=== PATIENT | female | born 1980 | race Caucasian/White ===

== ENCOUNTER 2016-06-26 15:14 | Inpatient (IN) | payer OTHER ==
[~2016-06-26] VITALS: Ht 165.1 cm; Wt 109.8 kg
[2016-06-26 15:52] LABS: EOSINOPHIL (%) 3.9 % (0-5); EOSINOPHIL COUNT 0.3 K/uL (0-0.3); HEMATOCRIT 35.1 % (36.0-46.0); IMMATURE GRANULOCYTE (%) 0.6 % (0.0-0.7); IMMATURE GRANULOCYTE COUNT 0.1 K/uL; INSTRUMENT ABS NEUTROPHIL CT 5.5 K/uL; LYMPHOCYTE COUNT 1.7 K/uL (1.0-2.8); MCH 31.5 PG (29.0-34.0); MCHC 33.3 G/DL (30.0-36.0); MCV 94.4 FL (83-99); MEAN PLAT.VOLUME 9.2 uM^3 (9.5-12.4); MONOCYTE (%) 6.9 % (3-12); MONOCYTE COUNT 0.6 K/uL (0-0.8); NEUTROPHIL (%) 67.6 % (45-76); NEUTROPHIL COUNT 5.5 K/uL (1.8-6.4); PLATELET COUNT 279 K/uL (156-360); RBC DIS.WIDTH-SD 44.9 % (39-53); RED BLOOD COUNT 3.72 M/uL (3.80-5.20); WHITE BLOOD COUNT 8.2 K/uL (4.1-10.2)
[2016-06-26 16:05] LABS: CHLORIDE 108 mEq/L (99-109); POTASSIUM 3.4 mEq/L (3.7-5.4); SODIUM 141 mEq/L (136-147)
[2016-06-26 16:08] LABS: GLUCOSE 166 mg/dL (70-99)
[2016-06-26 16:09] LABS: ANION GAP 13 MEQ/L (2-14); TOTAL BILIRUBIN 0.3 mg/dL (0.0-1.0)
[2016-06-26 16:10] LABS: SERUM ETHYL ALCOHOL < 10 mg/dL
[2016-06-26 16:12] LABS: ALKALINE PHOSPHATASE 55 IU/L (3-129)
[2016-06-26 16:13] LABS: UREA NITROGEN (BUN) 15 mg/dL (9-23)
[2016-06-26 16:15] LABS: SALICYLATE < 5.0 MG/DL (15-30)
[2016-06-26 16:22] LABS: GFR ESTIMATE (CALCULATED) > 59 mL/min/; QUANTITATIVE HCG < 4.0 MIU/ML
[2016-06-26 17:11] LABS: BASE EXCESS -1.5 mEq/L (-3 to +3); BICARBONATE 23.7 mEq/L (22-26); CARBOXY HGB 1.4 % (0-5); METHEMOGLOBIN 0.6 % (0-1.5); PCO2 41 mm Hg (35-45); PO2 107 mm Hg (80-100); pH 7.37 (7.35-7.45)
[2016-06-26 17:12] LABS: COMMENTS - BLOOD GASES A+C+; DEVICE VENT; FI02 40 %; MECHANICAL RATE 14 resp/min; MODE A/C; PEEP 5 CM/H20; SITE RR; TIDAL VOLUME 500 ML; TOTAL RESP RATE 14 resp/min
[2016-06-26 19:24] LABS: AMPHETAMINE NEGATIVE (500 ng/mL); BARBITURATES NEGATIVE (200 ng/mL); BENZODIAZEPINES NEGATIVE (150 ng/mL); COCAINE NEGATIVE (150 ng/mL); INTERNAL CONTROLS VALID? YES; METHADONE NEGATIVE (200 ng/mL); METHAMPHETAMINE NEGATIVE (500 ng/mL); OPIATES (MORPHINE) NEGATIVE (100 ng/mL); OXYCODONE NEGATIVE (100 ng/mL); PHENCYCLIDINE NEGATIVE (25 ng/mL); PROPOXYPHENE NEGATIVE (300 ng/mL); THC CANNABINOIDS NEGATIVE (50 ng/mL); TRICYCLIC ANTIDEPRESSANTS PRESUMPTIVE POSITIVE (300 ng/mL)
[2016-06-26 19:45] VITALS: BP 114/90
[2016-06-26 20:00] VITALS: BP 108/73
[2016-06-26 21:00] VITALS: BP 102/66
[2016-06-26 21:08] LABS: METH RESISTANT S AUREUS PCR NEGATIVE (NEGATIVE)
[2016-06-26 21:09] LABS: PROBE CHECK PASS; SPECIMEN PROCESSING CONTROL PASS
[2016-06-26 22:00] VITALS: BP 102/67
[2016-06-26 23:00] VITALS: BP 106/72
[2016-06-27] VITALS (22 sets, daily range): BP systolic 93–120; BP diastolic 60–80
[2016-06-27 08:46] LABS: MCH 31.1 PG (29.0-34.0); MCHC 32.4 G/DL (30.0-36.0); MEAN PLAT.VOLUME 9.1 uM^3 (9.5-12.4); PLATELET COUNT 267 K/uL (156-360); RBC DIS.WIDTH-CV 13.4 % (11.8-14.6); RBC DIS.WIDTH-SD 47.8 % (39-53); RED BLOOD COUNT 3.54 M/uL (3.80-5.20)
[2016-06-27 08:47] LABS: ANION GAP 7 MEQ/L (2-14); CHLORIDE 110 MEQ/L (99-109); GFR ESTIMATE (CALCULATED) > 59 mL/min/; POTASSIUM 3.9 MEQ/L (3.7-5.4); SAMPLE HEMOLYSIS CHECK 0; SAMPLE ICTERIC CHECK 0; SAMPLE LIPEMIA CHECK 0; SODIUM 144 MEQ/L (136-147); UREA NITROGEN (BUN) 12 mg/dL (9-23); WHITE BLOOD COUNT 10.7 K/uL (4.1-10.2)
[2016-06-27 08:52] LABS: GLUCOSE 85 mg/dL (70-99)
[2016-06-27 17:36] LABS: BASE EXCESS 3.5 mEq/L (-3 to +3); BICARBONATE 27.8 mEq/L (22-26); CARBOXY HGB 1.6 % (0-5); COMMENTS - BLOOD GASES A+C+; DEVICE NC; METHEMOGLOBIN 1.5 % (0-1.5); O2 FLOW 2 L/MIN; PCO2 40 mm Hg (35-45); PO2 83 mm Hg (80-100); SITE RR; TOTAL RESP RATE 16 resp/min; pH 7.45 (7.35-7.45)
[2016-06-27] MEDS ORDERED: VENLAFAXINE HCL75 M3 PO (19:49)
[2016-06-27] MEDS ORDERED: QUETIAPINE FUM400 MG PO (19:50)
[2016-06-27] MEDS ORDERED: COGENTIN1 MG PO (19:51)
[2016-06-27] MEDS ORDERED: CELEXA40 MG PO (19:52)
[2016-06-27] MEDS ORDERED: KLONOPIN2 MG PO (19:53)
[2016-06-28] VITALS (10 sets, daily range): BP systolic 100–128; BP diastolic 54–77
[2016-06-28 07:47] LABS: HEMATOCRIT 32.8 % (36.0-46.0); MCH 31.4 PG (29.0-34.0); MCHC 32.9 G/DL (30.0-36.0); MCV 95.3 FL (83-99); PLATELET COUNT 277 K/uL (156-360); RBC DIS.WIDTH-CV 13.5 % (11.8-14.6); RBC DIS.WIDTH-SD 47.5 % (39-53); RED BLOOD COUNT 3.44 M/uL (3.80-5.20); WHITE BLOOD COUNT 10.5 K/uL (4.1-10.2)
[2016-06-28 08:10] LABS: ANION GAP 7 MEQ/L (2-14); CHLORIDE 107 MEQ/L (99-109); GFR ESTIMATE (CALCULATED) > 59 mL/min/; GLUCOSE 83 mg/dL (70-99); POTASSIUM 4.4 MEQ/L (3.7-5.4); SAMPLE HEMOLYSIS CHECK 0; SAMPLE ICTERIC CHECK 0; SAMPLE LIPEMIA CHECK 0; SODIUM 143 MEQ/L (136-147); UREA NITROGEN (BUN) 8 mg/dL (9-23)
[2016-06-28] MEDS ORDERED: VALTREX1000 MG PO (21:16)
[2016-06-29 04:13] VITALS: BP 114/64
[2016-06-29 05:25] LABS: HEMATOCRIT 34.3 % (36.0-46.0); MCH 31.1 PG (29.0-34.0); MCHC 32.7 G/DL (30.0-36.0); MCV 95.3 FL (83-99); MEAN PLAT.VOLUME 9.4 uM^3 (9.5-12.4); PLATELET COUNT 305 K/uL (156-360); RBC DIS.WIDTH-CV 13.2 % (11.8-14.6); RBC DIS.WIDTH-SD 46.5 % (39-53); WHITE BLOOD COUNT 7.6 K/uL (4.1-10.2)
[2016-06-29 05:47] LABS: ANION GAP 9 MEQ/L (2-14); CHLORIDE 105 MEQ/L (99-109); GFR ESTIMATE (CALCULATED) > 59 mL/min/; GLUCOSE 90 mg/dL (70-99); POTASSIUM 3.6 MEQ/L (3.7-5.4); SAMPLE HEMOLYSIS CHECK 0; SAMPLE ICTERIC CHECK 0; SAMPLE LIPEMIA CHECK 0; SODIUM 141 MEQ/L (136-147); UREA NITROGEN (BUN) 14 mg/dL (9-23)
[2016-06-29 08:08] VITALS: BP 112/72
[2016-06-29 16:04] VITALS: BP 119/73
[2016-06-29] MEDS ORDERED: ABILIFY MAINTE400 MG IM (19:44)
== END 2016-06-29 17:47 | DRG 917 ==
LOC: EME 15:14 → EDBD 15:14 → EDOF 17:24 → 4WEST 17:24 → 3EAST 06-28 08:55
PROVIDERS: Emergency Medicine; Internal Medicine Pulmonary Disease; Nurse Practitioner Family
DX: T43.592A Poisoning by other antipsychotics and neuroleptics, intentional self-harm, initial encounter (principal); J96.01 Acute respiratory failure with hypoxia; F20.0 Paranoid schizophrenia; T42.4X2A Poisoning by benzodiazepines, intentional self-harm, initial encounter; Z68.41 Body mass index [BMI] 40.0-44.9, adult; T44.3X2A Poisoning by other parasympatholytics [anticholinergics and antimuscarinics] and spasmolytics, intentional self-harm, initial encounter; T43.212A Poisoning by selective serotonin and norepinephrine reuptake inhibitors, intentional self-harm, initial encounter; T43.222A Poisoning by selective serotonin reuptake inhibitors, intentional self-harm, initial encounter; F25.9 Schizoaffective disorder, unspecified; E87.6 Hypokalemia; E66.01 Morbid (severe) obesity due to excess calories; R41.82 Altered mental status, unspecified; R00.0 Tachycardia, unspecified; Z87.891 Personal history of nicotine dependence; D64.9 Anemia, unspecified
CPT/HCPCS: 36600; 71010; 80048; 80053; 82803; 84702; 85025; 85027; 87070; 87205; 87641; 94002; 94660; 94799; 99281; 99285; G0480; J0330; J1650; J2704; J7030; J7120

== ENCOUNTER 2016-06-29 17:14 | Inpatient (IN) | payer OTHER ==
[~2016-06-29] VITALS: Ht 165.1 cm; Wt 102.7 kg
[~2016-06-29 17:14] MED LIST: CELEXA40 MG PO; COGENTIN1 MG PO; KLONOPIN2 MG PO; QUETIAPINE FUM400 MG PO; VALTREX1000 MG PO; VENLAFAXINE HCL75 M3 PO
[2016-06-29 17:56] VITALS: BP 116/75
[2016-06-29] MEDS ORDERED: ABILIFY MAINTE400 MG IM (19:44)
[2016-06-30 07:57] VITALS: BP 105/59
[2016-06-30 16:10] VITALS: BP 125/74
[2016-07-01 08:08] VITALS: BP 112/71
[2016-07-01 16:38] VITALS: BP 126/89
[2016-07-02 08:02] VITALS: BP 111/87
[2016-07-02 15:50] VITALS: BP 114/70
[2016-07-03 07:35] VITALS: BP 129/91
[2016-07-03 15:36] VITALS: BP 115/75
[2016-07-04 07:45] VITALS: BP 111/71
[2016-07-04 15:32] VITALS: BP 115/70
[2016-07-05 08:04] VITALS: BP 117/71
[2016-07-05] MEDS ORDERED: VENLAFAXINE HC150 M1 PO (09:38)
[2016-07-05] MEDS ORDERED: QUETIAPINE FUM300 MG PO (09:38)
[2016-07-05] MEDS ORDERED: CLONAZEPAM1 MG PO (09:38)
== END 2016-07-05 11:14 | disposition home or self-care (01) | DRG 885 ==
LOC: 1WEST 17:14
DX: F20.9 Schizophrenia, unspecified (principal); Z68.41 Body mass index [BMI] 40.0-44.9, adult; E66.3 Overweight; Z91.5 Personal history of self-harm
CPT/HCPCS: 97150 GO; 97165 GO